=== PATIENT | female | born 1985 | race Caucasian/White ===

== ENCOUNTER 2017-08-29 13:41 | Emergency (ER) | payer OTHER ==
[~2017-08-29] VITALS: Ht 167.6 cm; Wt 74.6 kg
[2017-08-29 13:49] VITALS: BP 112/74
[2017-08-29] MEDS ORDERED: LIDOCAINE 1%, 10ML ONE (14:07)
[2017-08-29] MEDS ORDERED: DIPH,PERTUSS(ACELL),TET VAC/PF 0.5 ML IM-VACC ONE ×2 (14:08→14:30)
[2017-08-29] MEDS ORDERED: ACETAMINOPHEN 500 MG TABLET ONE (14:15)
[2017-08-29] MEDS ORDERED: LIDOCAINE 1%, 20ML SQ ONE (14:30)
[2017-08-29] MEDS ORDERED: ACETAMINOPHEN 500 MG TABLET PO ONE (14:30)
== END 2017-08-29 15:32 | disposition home or self-care (01) ==
LOC: ED 14:33
DX: S51.011A Laceration without foreign body of right elbow, initial encounter (principal); W07.XXXA Fall from chair, initial encounter; Y93.89 Activity, other specified; Y92.009 Unspecified place in unspecified non-institutional (private) residence as the place of occurrence of the external cause; Y99.8 Other external cause status
CPT/HCPCS: 12042; 90471; 90715